=== PATIENT | male | born 1980 | race Two or more races ===

== ENCOUNTER 2022-03-04 13:57 | Inpatient (IN) | payer OTHER ==
[~2022-03-04] VITALS: Ht 182.9 cm; Wt 76.6 kg
[2022-03-04] MEDS ORDERED: MORPHINE SULFATE 4 MG/ML SYR/VIAL IV ONE (14:30)
[2022-03-04] MEDS ORDERED: ONDANSETRON HCL 4 MG/2 ML VIAL IV ONE (14:30)
[2022-03-04] MEDS ORDERED: SODIUM CHLORIDE 0.9% 500 ML IVB ONE (14:30)
[2022-03-04 16:10] LABS: Basophils # (auto) 0 10 ^3/uL (0-0.2); Basophils % (auto) 0.1 % (0.0-2.0); Eosinophils # (auto) 0 10 ^3/uL (0-0.8); Eosinophils % (auto) 0.1 % (0.0-7.0); Hematocrit 45.5 % (41.0-53.0); Hemoglobin 15.5 g/dL (13.5-17.5); Lymphocytes # (auto) 0.8 10 ^3/uL (0.4-5.4); Lymphocytes % (auto) 8.1 % (10.0-50.0); Mean Corpuscular Hemoglobin 27.7 pg (28.0-32.0); Mean Corpuscular Volume 81.4 fL (80.0-100.0); Monocytes # (auto) 0.7 10 ^3/uL (0-1.3); Monocytes % (auto) 6.5 % (0.0-12.0); Neutrophils # (auto) 8.7 10 ^3/uL (1.6-8.6); Neutrophils % (auto) 85.2 % (37.0-80.0); Nucleated Red Blood Cells % 0.1 %; Red Blood Cells 5.58 10^6/uL (4.5-5.90); Red Cell Distribution Width 17.4 % (11.8-14.3); White Blood Cell 10.2 10^3/uL (4.4-10.8)
[2022-03-04 16:26] LABS: Lactic Acid w/Reflex 2.7 mmol/L (0.4-2.0)
[2022-03-04 16:30] LABS: INR 0.97 (0.9-1.15)
[2022-03-04] MEDS ORDERED: NITROGLYCERIN 0.4 MG SL TAB SL PRN (16:30)
[2022-03-04 16:33] LABS: Albumin 3.3 g/dL (3.4-5.0); BUN/Creatinine Ratio 16.7; Magnesium 2.1 mg/dL (1.6-2.6); Potassium 4.2 mmol/L (3.5-5.1)
[2022-03-04 16:36] LABS: Bilirubin, Total 0.6 mg/dL (0.2-1.0); Total Protein 7.7 g/dL (6.4-8.2)
[2022-03-04] MEDS ORDERED: ONDANSETRON HCL 4 MG/2 ML VIAL IV PRN (17:00)
[2022-03-04] MEDS: D5W/SOD CHL 0.45%/KCL 20MEQ 1,000 ML IV SCH (18:22)
[2022-03-04 18:24] VITALS: BP 139/94
[2022-03-04] MEDS: MORPHINE SULFATE 4 MG/ML SYR/VIAL IV PRN ×2 (18:56→23:06)
[2022-03-04 20:00] VITALS: BP 137/91
[2022-03-04 22:00] VITALS: BP 137/91
[2022-03-05] MEDS: D5W/SOD CHL 0.45%/KCL 20MEQ 1,000 ML IV SCH ×3 (02:55→18:21)
[2022-03-05] MEDS: MORPHINE SULFATE 4 MG/ML SYR/VIAL IV PRN (04:35)
[2022-03-05 05:04] VITALS: BP 130/90
[2022-03-05 08:00] VITALS: BP 131/84
[2022-03-05] MEDS ORDERED: GOLYTELY 4L KIT PO ONE (09:00)
[2022-03-05] MEDS: PANTOPRAZOLE 40 MG/10 ML VIAL INJ IV SCH (10:40)
[2022-03-05] MEDS: ENOXAPARIN SOD 40 MG/0.4 ML SYRINGE SC SCH (10:40)
[2022-03-05 12:00] VITALS: BP 130/84
[2022-03-05 16:00] VITALS: BP 134/83
[2022-03-05 22:00] VITALS: BP 138/90
[2022-03-06] MEDS: D5W/SOD CHL 0.45%/KCL 20MEQ 1,000 ML IV SCH ×3 (02:20→14:33)
[2022-03-06 05:00] VITALS: BP 123/88
[2022-03-06] MEDS: ENOXAPARIN SOD 40 MG/0.4 ML SYRINGE SC SCH (08:14)
[2022-03-06] MEDS: PANTOPRAZOLE 40 MG/10 ML VIAL INJ IV SCH (08:14)
[2022-03-06 09:00] VITALS: BP 124/81
[2022-03-06 13:00] VITALS: BP 129/79
[2022-03-06 17:00] VITALS: BP 121/71
[2022-03-06 22:00] VITALS: BP 110/70
[2022-03-07] MEDS: D5W/SOD CHL 0.45%/KCL 20MEQ 1,000 ML IV SCH ×2 (03:20→20:00)
[2022-03-07 05:00] VITALS: BP 116/76
[2022-03-07 05:32] LABS: Albumin 2.2 g/dL (3.4-5.0); BUN/Creatinine Ratio 14.8; Calcium 8.6 mg/dL (8.5-10.1); Potassium 4.2 mmol/L (3.5-5.1)
[2022-03-07 05:45] LABS: Bilirubin, Total 0.4 mg/dL (0.2-1.0); Total Protein 5.6 g/dL (6.4-8.2)
[2022-03-07] MEDS: PANTOPRAZOLE 40 MG/10 ML VIAL INJ IV SCH (07:58)
[2022-03-07] MEDS: ENOXAPARIN SOD 40 MG/0.4 ML SYRINGE SC SCH (07:58)
[2022-03-07 08:10] VITALS: BP 99/45
[2022-03-07 11:55] VITALS: BP 105/64
[2022-03-07] MEDS ORDERED: HYDROcodone-ACET 10/325MG TAB PO PRN (12:00)
[2022-03-07 16:20] VITALS: BP 118/72
[2022-03-07 22:00] VITALS: BP 105/70
[2022-03-08] VITALS (7 sets, daily range): BP systolic 109–123; BP diastolic 65–77
[2022-03-08] MEDS: D5W/SOD CHL 0.45%/KCL 20MEQ 1,000 ML IV SCH (04:20)
[2022-03-08] MEDS: PANTOPRAZOLE 40 MG/10 ML VIAL INJ IV SCH (09:54)
[2022-03-08] MEDS: ENOXAPARIN SOD 40 MG/0.4 ML SYRINGE SC SCH (09:54)
[2022-03-08] MEDS ORDERED: GOLYTELY 4L KIT PO ONE (12:15)
[2022-03-09 04:54] VITALS: BP 106/67
[2022-03-09 04:55] VITALS: BP 129/72
[2022-03-09] MEDS ORDERED: GOLYTELY 4L KIT PO ONE ×2 (06:00→15:45)
[2022-03-09 08:00] VITALS: BP 122/84
[2022-03-09 08:15] VITALS: BP 122/84
[2022-03-09] MEDS: PANTOPRAZOLE 40 MG/10 ML VIAL INJ IV SCH (10:21)
[2022-03-09] MEDS: ENOXAPARIN SOD 40 MG/0.4 ML SYRINGE SC SCH (10:21)
[2022-03-09 13:00] VITALS: BP 114/78
[2022-03-09] MEDS ORDERED: fentaNYL CITRATE 100 MCG/2 ML VL ONE (13:25)
[2022-03-09] MEDS ORDERED: MIDAZOLAM HCL 5 MG/ML-1ML VIAL ONE (13:25)
[2022-03-09] MEDS ORDERED: diphenhdrAMINE HCL 50 MG/1 ML VL ONE (13:25)
[2022-03-09] MEDS ORDERED: SODIUM CHLORIDE LOCK 10 ML ONE (13:25)
[2022-03-09 20:00] VITALS: BP 122/84
[2022-03-10] MEDS ORDERED: GOLYTELY 4L KIT PO ONE (06:00)
== END 2022-03-09 22:35 | DRG 390 ==
LOC: ER 13:57 → EEVIPCON 13:57 → OVERFLOW 16:24 → WEST WING 17:48
PROVIDERS: ADMIT Internal Medicine; ATTEND Internal Medicine
PROC: 0D9670Z Drainage of Stomach with Drainage Device, Via Natural or Artificial Opening (ICD-10-PCS; 2022-03-04)
PROC: 0DBN8ZX Excision of Sigmoid Colon, Via Natural or Artificial Opening Endoscopic, Diagnostic (ICD-10-PCS; principal; 2022-03-09 15:22)
DX: K56.600 Partial intestinal obstruction, unspecified as to cause (principal); Z93.3 Colostomy status; M35.00 Sjogren syndrome, unspecified; F32.A Depression, unspecified; K21.9 Gastro-esophageal reflux disease without esophagitis; R19.7 Diarrhea, unspecified; Z90.49 Acquired absence of other specified parts of digestive tract; Z20.822 Contact with and (suspected) exposure to COVID-19
CPT/HCPCS: 36415; 45380; 71045; 74018; 74176; 80053; 82140; 82150; 83605; 83690; 83735; 85025; 85610; 85730; 87040; 87081; 93005; 96361; 96374; 96375; C9113; G0378; J2250; J2405